=== PATIENT | male | born 1950 | race Caucasian/White ===

== ENCOUNTER 2018-09-19 15:16 | Emergency (ER) | payer OTHER ==
[~2018-09-19] VITALS: Ht 170.2 cm; Wt 88.6 kg
[~2018-09-19 15:16] MED LIST: ASPIRIN ADULT L81 MG PO; LIPITOR10 M1 PO; NORVASC
[2018-09-19] MEDS ORDERED: TORADOL PO (17:54)
[2018-09-19] MEDS ORDERED: MEDDOSEPAK PO (17:54)
[2018-09-19] MEDS ORDERED: FLEXERIL PO (17:54)
[2018-09-19 18:05] VITALS: BP 136/79
== END 2018-09-19 18:05 | disposition home or self-care (01) | DRG 556 ==
LOC: ED 15:16
DX: M25.511 Pain in right shoulder (principal); M54.2 Cervicalgia; I10 Essential (primary) hypertension; E78.5 Hyperlipidemia, unspecified; R73.03 Prediabetes

== ENCOUNTER 2022-01-11 11:18 | Emergency (ER) | payer OTHER ==
[~2022-01-11] VITALS: Ht 170.2 cm; Wt 81.0 kg
[2022-01-11] VITALS (7 sets, daily range): BP systolic 170–199; BP diastolic 83–106
[~2022-01-11 11:18] MED LIST changes: +FLEXERIL PO; +MEDDOSEPAK PO; +TORADOL PO
[2022-01-11] MEDS ORDERED: OMNI-PAC300 MG PO (18:32)
[2022-01-11] MEDS ORDERED: MUPIROCIN2 % EX (18:35)
== END 2022-01-11 19:00 | disposition home or self-care (01) | DRG 605 ==
LOC: ED 11:18
DX: S61.012A Laceration without foreign body of left thumb without damage to nail, initial encounter (principal); I10 Essential (primary) hypertension; E78.5 Hyperlipidemia, unspecified; R73.03 Prediabetes; W27.8XXA Contact with other nonpowered hand tool, initial encounter